=== PATIENT | male | born 1965 | race African-American/Black ===

== ENCOUNTER → 2020-06-18 14:43 | Outpatient (BNVA) | payer OTHER, SELFPAY | PROVIDERS: PCP Internal Medicine; Visit Provider Surgery | DX: L02.11 Cutaneous abscess of neck (principal) | CPT/HCPCS: 10060; 99213 ==

== ENCOUNTER 2020-06-18 17:44 | Outpatient (REF) | payer OTHER, SELFPAY | END 2020-06-18 17:45 | disposition home or self-care (01) | LOC: HO.LNP 17:44 | PROVIDERS: Visit Provider Surgery | DX: L02.91 Cutaneous abscess, unspecified (principal) | CPT/HCPCS: 87071; 87205 ==

== ENCOUNTER 2021-01-14 14:07 | Outpatient (REF) | payer OTHER, SELFPAY | END 2021-01-14 14:08 | disposition home or self-care (01) | LOC: HO.LAB 14:07 | PROVIDERS: PCP Internal Medicine; Visit Provider Surgery | DX: L02.91 Cutaneous abscess, unspecified (principal) | CPT/HCPCS: 10061; 87071; 87205; 99212 ==

== ENCOUNTER → 2021-01-21 14:09 | Outpatient (BNVA) | payer OTHER, SELFPAY | PROVIDERS: PCP Internal Medicine; Visit Provider Surgery | DX: Z48.817 Encounter for surgical aftercare following surgery on the skin and subcutaneous tissue (principal); Z87.2 Personal history of diseases of the skin and subcutaneous tissue | CPT/HCPCS: 99212 ==

== ENCOUNTER 2021-03-05 15:27 | Outpatient (REF) | payer OTHER, SELFPAY | END 2021-03-05 15:28 | disposition home or self-care (01) | LOC: HO.LNP 15:27 | PROVIDERS: PCP Internal Medicine; Referring Provider Internal Medicine; Visit Provider Surgery | DX: L02.91 Cutaneous abscess, unspecified (principal) | CPT/HCPCS: 10061; 87071; 87077; 87186; 87205; 99212 ==

== ENCOUNTER → 2021-03-21 14:10 | Outpatient (BNVA) | payer OTHER, SELFPAY | PROVIDERS: PCP Internal Medicine; Visit Provider Surgery | DX: Z01.818 Encounter for other preprocedural examination (principal); L02.91 Cutaneous abscess, unspecified | CPT/HCPCS: 99212 ==

== ENCOUNTER 2021-04-23 06:54 | Day surgery (SDC) | payer OTHER, SELFPAY ==
[2021-04-16 12:52] VITALS: BMI 37.3
--- NOTE | 2021-04-22 11:48 | P.CONAN_ITS ---
Documented by User: Erika Caputo NP 04/22/21 11:49 HPI - Anesthesia Eval Consult details Narrative: 55yo M for Excision of Large Inclusion Cyst Posterior Neck PMFSH Active Problems Active Problems: All Active Problems (Updated 04/16/21 @ 12:49 by Jennifer Johnston) Abscess (Acute) Past Medical History Medical History Asthma Depression DM II (diabetes mellitus, type II), controlled Elevated cholesterol GERD (gastroesophageal reflux disease) History of hidradenitis suppurativa HTN (hypertension) Obesity Schizophrenia Family History Family History Father No problems noted. Mother Stroke Diabetes HTN (hypertension) Brother No problems noted. Sister No problems noted. Surgical History Surgical History H/O removal of cyst History of colonoscopy History of excision of pilonidal cyst History of incision and drainage Social History Social History Patient Tobacco Use Status: Tobacco use Unknown Advance Directives Information Provided: No Meds Allergies Allergy/AdvReac Type Severity Reaction Status Date / Time bacitracin Allergy Intermediate swelling, Verified 04/16/21 12:37 itching, rash hydrocodone [Vicodin] Allergy Intermediate itchy Verified 04/16/21 12:37 Penicillins [PENICILLINS] Allergy Intermediate itching/facial Verified 04/16/21 12:37 swelling crayfish [CRAYFISH] Allergy Mild ITCH Verified 01/14/21 14:52 morphine [MORPHINE] AdvReac Intermediate ITCHING Verified 04/16/21 12:37 crawfish (other shellfish is Allergy Intermediate facial Uncoded 04/16/21 12:37 f tingling Home Medications Medication Instructions Recorded Confirmed Last Taken Type albuterol (refill) 90 90 mcg INHALATION Q4H PRN 06/05/20 04/16/21 Unknown History mcg/actuation aerosol inhaler amlodipine 10 mg tablet 10 mg PO DAILY 06/05/20 04/16/21 Unknown History aspirin 81 mg tablet,delayed 81 mg PO DAILY 06/05/20 04/16/21 Unknown History release beclomethasone dipropionate 40 1 inh INHALATION Q12H 06/05/20 04/16/21 Unknown History mcg/actuation HFA breath activated aerosol (Qvar RediHaler) buprenorphine 12 mg-naloxone 3 mg 1 film BUCCAL Q24H 06/05/20 04/16/21 Unknown History sublingual film (Suboxone) divalproex 500 mg tablet,delayed 500 mg PO BID 06/05/20 04/16/21 Unknown History release docusate sodium 100 mg capsule 100 mg PO DAILY 06/05/20 04/16/21 Unknown History (Colace) duloxetine 60 mg capsule,delayed 60 mg PO DAILY 06/05/20 04/16/21 Unknown History release gabapentin 300 mg capsule 300 mg PO DAILY 06/05/20 04/16/21 Unknown History hydrochlorothiazide 25 mg tablet 25 mg PO DAILY 06/05/20 04/16/21 Unknown History ibuprofen 600 mg tablet 600 mg PO Q8H PRN 06/05/20 04/16/21 Unknown History melatonin 5 mg capsule 5 mg PO BEDTIME 06/05/20 04/16/21 Unknown History miscellaneous medical supply #1 ea 06/05/20 04/16/21 Unknown History montelukast 10 mg tablet 10 mg PO DAILY 06/05/20 04/16/21 Unknown History naloxone 4 mg/actuation nasal 4 mg INTRANASAL Q2M PRN 06/05/20 04/16/21 Unknown History spray (Narcan) omeprazole 20 mg capsule,delayed 20 mg PO DAILY 06/05/20 04/16/21 Unknown History release rosuvastatin 20 mg tablet 20 mg PO DAILY 06/05/20 04/16/21 Unknown History sennosides 8.6 mg tablet 8.6 mg PO BEDTIME 06/05/20 04/16/21 Unknown History Exam Exam Date and Time: April 22, 2021 1148 Height,Weight and Vital Signs: Height 6 ft 4 in Weight 139 kg Assessment and Plan Assessment Anesthesia Assessment: Chart Reviewed Documented by User: Lakisha Boudreaux MD 04/23/21 08:08 COUNTS INCLUDE 234 BEDS AT THE [facility] Past Medical History Medical History Asthma Depression DM II (diabetes mellitus, type II), controlled Elevated cholesterol GERD (gastroesophageal reflux disease) History of hidradenitis suppurativa HTN (hypertension) Obesity Schizophrenia Family History Family History Father No problems noted. Mother Stroke Diabetes HTN (hypertension) Brother No problems noted. Sister No problems noted. Surgical History Surgical History H/O removal of cyst History of colonoscopy History of excision of pilonidal cyst History of incision and drainage History of Problems with Anesthesia: No ( Hard to wake me up ) Social History Social History Patient Tobacco Use Status: Tobacco use Unknown Advance Directives Information Provided: No Meds Allergies Allergy/AdvReac Type Severity Reaction Status Date / Time bacitracin Allergy Intermediate swelling, Verified 04/16/21 12:37 itching, rash hydrocodone [Vicodin] Allergy Intermediate itchy Verified 04/16/21 12:37 Penicillins [PENICILLINS] Allergy Intermediate itching/facial Verified 04/16/21 12:37 swelling crayfish [CRAYFISH] Allergy Mild ITCH Verified 01/14/21 14:52 morphine [MORPHINE] AdvReac Intermediate ITCHING Verified 04/16/21 12:37 crawfish (other shellfish is Allergy Intermediate facial Uncoded 04/16/21 12:37 f tingling Home Medications Medication Instructions Recorded Confirmed Last Taken Type albuterol (refill) 90 90 mcg INHALATION Q4H PRN 06/05/20 04/16/21 Unknown History mcg/actuation aerosol inhaler amlodipine 10 mg tablet 10 mg PO DAILY 06/05/20 04/16/21 Unknown History aspirin 81 mg tablet,delayed 81 mg PO DAILY 06/05/20 04/16/21 Unknown History release beclomethasone dipropionate 40 1 inh INHALATION Q12H 06/05/20 04/16/21 Unknown History mcg/actuation HFA breath activated aerosol (Qvar RediHaler) buprenorphine 12 mg-naloxone 3 mg 1 film BUCCAL Q24H 06/05/20 04/16/21 Unknown History sublingual film (Suboxone) divalproex 500 mg tablet,delayed 500 mg PO BID 06/05/20 04/16/21 Unknown History release docusate sodium 100 mg capsule 100 mg PO DAILY 06/05/20 04/16/21 Unknown History (Colace) duloxetine 60 mg capsule,delayed 60 mg PO DAILY 06/05/20 04/16/21 Unknown History release gabapentin 300 mg capsule 300 mg PO DAILY 06/05/20 04/16/21 Unknown History hydrochlorothiazide 25 mg tablet 25 mg PO DAILY 06/05/20 04/16/21 Unknown History ibuprofen 600 mg tablet 600 mg PO Q8H PRN 06/05/20 04/16/21 Unknown History melatonin 5 mg capsule 5 mg PO BEDTIME 06/05/20 04/16/21 Unknown History miscellaneous medical supply #1 ea 06/05/20 04/16/21 Unknown History montelukast 10 mg tablet 10 mg PO DAILY 06/05/20 04/16/21 Unknown History naloxone 4 mg/actuation nasal 4 mg INTRANASAL Q2M PRN 06/05/20 04/16/21 Unknown History spray (Narcan) omeprazole 20 mg capsule,delayed 20 mg PO DAILY 06/05/20 04/16/21 Unknown History release rosuvastatin 20 mg tablet 20 mg PO DAILY 06/05/20 04/16/21 Unknown History sennosides 8.6 mg tablet 8.6 mg PO BEDTIME 06/05/20 04/16/21 Unknown History Exam Airway Mallampati Class: III TM Dist: >3cm Neck ROM: Full Loose/Missing/Broken Teeth: No Heart: RRR Lungs: CTA Assessment and Plan Assessment Anesthesia Assessment: Anesthesia Plan Discussed Final Anesthetic Review History of Problems with Anesthesia: No ( Hard to wake me up ) NPO: Yes ASA Class: II Final Preanesthetic Review: Meds/Allgs Chart Reviewed, Consent Obtained/Reviewed and Anes Risks/Benef Reviewed Patient Risk: Low Procedure Risk: Intermediate Anesthetic Plan Anesthetic Plan: GA Disposition: Standard PACU
[2021-04-23] VITALS (11 sets, daily range): BP systolic 119–159; BP diastolic 60–105; PULSE 78–113; RESP 16; TEMP 36.2–37; O2SAT 92–97; BMI 37.7
--- NOTE | 2021-04-23 07:22 | MHC.SHP ---
Pre-Procedural Eval Section A Date of Service: 04/23/21 The patient is an INPATIENT: No Changes since office visit: Yes Patient answered all questions; No Cold of Flu in the past 2 weeks, No New Medical Problems and No Changes in Medication The History & Physical has been completed within 30 days and I have reviewed it.: No Section B Chief Complaint: Abscess Relevant Social History: None Present Medications: see Short Stay Collaborative assessment Medical History: Significant History (DM) History of Previous Operations: No relevant previous surgery Allergies: Allergies Allergy/AdvReac Type Severity Reaction Status Date / Time bacitracin Allergy Intermediate swelling, Verified 04/16/21 12:37 itching, rash hydrocodone [Vicodin] Allergy Intermediate itchy Verified 04/16/21 12:37 Penicillins [PENICILLINS] Allergy Intermediate itching/facial Verified 04/16/21 12:37 swelling crayfish [CRAYFISH] Allergy Mild ITCH Verified 01/14/21 14:52 morphine [MORPHINE] AdvReac Intermediate ITCHING Verified 04/16/21 12:37 crawfish (other shellfish is Allergy Intermediate facial Uncoded 04/16/21 12:37 f tingling Review of Systems Sugical H&P ROS: Negative: Constitution, Cardiovascular, Respiratory, Neurological, Psychiatric, Hem-Onc, Allergic/Immunologic, Gastrointestinal, Genitourinary, Musculoskeletal, Endocrine and Eyes/Ears/Nose/Throat and Yes, Specify: Integumentary (SKin abscess) Exam Surgical H&P Exam: Normal: HEENT, Normal: Heart, Normal: Lungs, Normal: Extremities, Normal: Abdomen, Normal: Skin and Normal: Neurological Plan Diagnosis/Plan: Unchanged I have reviewed the history and physical and performed a pertinent physical examination on my patient. No changes have occurred unless specified.
[2021-04-23] MEDS: Lactated Ringers 1,000 ML 100 ML IVCONT (07:29)
[2021-04-23 07:56] LABS: Glucose, Whole Blood 122 mg/dL (60-115)
--- NOTE | 2021-04-23 10:17 | P.OP_ITS ---
Operative Note Operative Note Date of Service: 04/23/21 Narrative: Preoperative diagnosis: Posterior neck abscess Postoperative diagnosis: Same Procedure: Wide excision posterior neck abscess, debridement of abscess cavity Surgeon: Deven Licea MD Airborne Sensor Specialist: Aniyah Reddy PA-C Anesthesia: General endotracheal Indications for procedure: 55-year-old male patient with a chronically draining abscess of the posterior neck, status post multiple incision and drainage pr ocedures presenting today for wide excision of the multiple posterior neck abscess collections. Patient was found to have a wide area measuring approximately 12 x 3 cm involving the posterior neck with multiple abscess collections Operative findings:. Multiple abscess collections as noted above measuring 12 x 3 cm Specimen: Wound culture, posterior neck abscess Estimated blood loss: 20 mL Complications: None Procedure details: Patient was brought to the OR and placed in a supine position. After administering general anesthesia he was placed in a prone position. The patient's posterior neck was prepped with Betadine and draped in a sterile fashion. A surgical time-out was called the consent confirmed. Patient received preoperative antibiotics and Venodyne boots were in place. Local anesthesia consisting of 0.25% Sensorcaine with epinephrine was then infiltrated in the posterior neck. An elliptical incision was made with a scalpel around the previously infected abscess collections. Incision was carried down to through subcutaneous tissue and around the chronically inflamed tissue. Several abscess collections were identified and drained. A culture of the purulence was obtained. A 2nd collection more to the left of midline was also drained of a large purulence collection. This was incised with a scalpel and the abscess cavity debrided using a curette. Further observation revealed several deeper collections with purulence discharge in the intervening skin. Incision was continued between the 2 incisions and 2 additional collections identified within the subcutaneous tissue extending down to the muscle fascia. This abscess cavity was further debrided using electrocautery sharp dissection. Total of 12 x 3 cm debridement of the skin subcutaneous tissue was performed. Because of the presence of pus within this cavity no attempt was made at closing the wound. Wounds were packed with half-inch iodoform packing and covered with fluff gauze followed by ABD pads. The patient tolerated the procedure well. Sponge, instrument, and needle counts reported as correct. The patient was transferred to PACU in stable condition.
[2021-04-23] MEDS: oxyCODONE HCl Immed Release 5 MG TABLET 10 MG PO (12:04)
--- NOTE | 2021-04-23 13:19 | PC.NURSE ---
Pt instructed to keep dressing clean and dry, no heavy lifting. F/U appt with Dr Wilkerson tomorrow. No shower until advised by MD. Electronic RX to [facility]
== END 2021-04-23 13:20 | disposition home or self-care (01) ==
LOC: HO.SSS 06:55 → HO.SSSA 11:19
PROVIDERS: PCP Internal Medicine; Visit Provider Surgery
PROC: (CPT 10061; principal; 2021-04-23 08:40)
DX: L02.11 Cutaneous abscess of neck (principal); Z88.0 Allergy status to penicillin; Z79.82 Long term (current) use of aspirin; Z79.899 Other long term (current) drug therapy; Z88.8 Allergy status to other drugs, medicaments and biological substances
CPT/HCPCS: 10061; 82947; 87071; 87205; 88304; J0330; J1100; J2250; J2370; J2405; J3010; J3370

== ENCOUNTER → 2021-04-24 10:46 | Outpatient (BNVA) | payer OTHER, SELFPAY | PROVIDERS: PCP Internal Medicine; Visit Provider Surgery | DX: Z48.817 Encounter for surgical aftercare following surgery on the skin and subcutaneous tissue (principal); Z87.2 Personal history of diseases of the skin and subcutaneous tissue | CPT/HCPCS: 99212 ==

== ENCOUNTER → 2021-04-29 14:00 | Outpatient (BNVA) | payer OTHER, SELFPAY | PROVIDERS: PCP Internal Medicine; Referring Provider Internal Medicine; Visit Provider Surgery | DX: Z48.817 Encounter for surgical aftercare following surgery on the skin and subcutaneous tissue (principal) | CPT/HCPCS: 99212 ==

== ENCOUNTER → 2021-05-02 11:41 | Outpatient (BNVA) | payer OTHER, SELFPAY | PROVIDERS: PCP Internal Medicine; Visit Provider Surgery | DX: Z48.817 Encounter for surgical aftercare following surgery on the skin and subcutaneous tissue (principal); Z87.2 Personal history of diseases of the skin and subcutaneous tissue | CPT/HCPCS: 99212 ==

== ENCOUNTER → 2021-05-06 16:00 | Outpatient (BNVA) | payer OTHER, SELFPAY | PROVIDERS: PCP Internal Medicine; Visit Provider Surgery | DX: L02.11 Cutaneous abscess of neck (principal); L73.2 Hidradenitis suppurativa; E11.9 Type 2 diabetes mellitus without complications; E78.00 Pure hypercholesterolemia, unspecified; I10 Essential (primary) hypertension; Z88.8 Allergy status to other drugs, medicaments and biological substances; Z88.5 Allergy status to narcotic agent; Z88.0 Allergy status to penicillin; Z91.013 Allergy to seafood | CPT/HCPCS: 99212 ==

== ENCOUNTER → 2021-05-20 15:20 | Outpatient (BNVA) | payer OTHER, SELFPAY | PROVIDERS: PCP Internal Medicine; Visit Provider Surgery | DX: L02.91 Cutaneous abscess, unspecified (principal) | CPT/HCPCS: 99212 ==

== ENCOUNTER → 2021-06-24 16:24 | Outpatient (BNVA) | payer OTHER, SELFPAY | PROVIDERS: PCP Internal Medicine; Visit Provider Surgery | DX: Z48.817 Encounter for surgical aftercare following surgery on the skin and subcutaneous tissue (principal); Z87.2 Personal history of diseases of the skin and subcutaneous tissue | CPT/HCPCS: 99212 ==

== ENCOUNTER → 2021-07-29 15:09 | Outpatient (BNVA) | payer OTHER, SELFPAY | PROVIDERS: PCP Internal Medicine; Visit Provider Surgery | DX: L02.91 Cutaneous abscess, unspecified (principal) | CPT/HCPCS: 99212 ==

== ENCOUNTER → 2021-08-05 16:03 | Outpatient (BNVA) | payer OTHER, SELFPAY | PROVIDERS: PCP Internal Medicine; Visit Provider Surgery | DX: L02.91 Cutaneous abscess, unspecified (principal); R59.0 Localized enlarged lymph nodes; E11.9 Type 2 diabetes mellitus without complications; I10 Essential (primary) hypertension; E78.00 Pure hypercholesterolemia, unspecified; E66.9 Obesity, unspecified; Z68.39 Body mass index [BMI] 39.0-39.9, adult; Z83.3 Family history of diabetes mellitus; Z82.49 Family history of ischemic heart disease and other diseases of the circulatory system; Z88.6 Allergy status to analgesic agent; Z88.1 Allergy status to other antibiotic agents; Z88.0 Allergy status to penicillin; Z91.013 Allergy to seafood; Z79.82 Long term (current) use of aspirin; Z79.899 Other long term (current) drug therapy | CPT/HCPCS: 99212 ==

== ENCOUNTER 2024-02-22 13:50 | Outpatient (AMB) | payer OTHER, SELFPAY ==
--- NOTE | 2024-02-22 13:52 | A.OFFVIS_ITS ---
Vital Signs 3 02/22/24 14:08 Height 6 ft 4.5 in Weight 313 lb BMI 37.6 Blood Pressure Location Lt brachial Position Sitting Pulse 75 Intake Visit Reasons: recurrent lipoma of the neck Intake Note: Patient is seen in office for recurrent lipoma of the neck. Pt c/o: recurrent abscess of the neck is draining, and has a couple more new ones, left arm for 6 months, right chest for 4 months, discharge comes and goes, very painful L.OV:08/05/21 Director Consumer Affairs Required: No Accompanied by: Self / Same As Patient Allergies bacitracin Allergy (Intermediate, Verified 02/22/24 14:01) swelling, itching, rash hydrocodone [Vicodin] Allergy (Intermediate, Verified 02/22/24 14:01) itchy Penicillins [PENICILLINS] Allergy (Intermediate, Verified 02/22/24 14:01) itching/facial swelling crayfish [CRAYFISH] Allergy (Mild, Verified 02/22/24 14:01) ITCH morphine [MORPHINE] Adverse Reaction (Intermediate, Verified 02/22/24 14:01) ITCHING crawfish (other shellfish is f Allergy (Intermediate, Uncoded 02/22/24 14:01) facial tingling Medication List - Last Reconciled 02/22/24 by Deven Licea MD [3 inch cloth tape As directed] [4x4 gauze As directed] albuterol (refill) 90 mcg/actuation 90 mcg inhalation Q4H PRN amlodipine 10 mg PO DAILY aspirin 81 mg PO DAILY chlorhexidine gluconate 4% (Hibiclens) 1 appl topical .QOD divalproex 500 mg PO BID doxycycline hyclate 100 mg PO BID duloxetine 60 mg PO DAILY gabapentin 600 mg PO TID hydrochlorothiazide 25 mg PO DAILY melatonin 5 mg PO BEDTIME montelukast 10 mg PO DAILY naloxone 4 mg/actuation (Narcan) 4 mg intranasal Q2M PRN omeprazole 20 mg PO DAILY oxycodone 10 mg PO Q8H PRN rosuvastatin 20 mg PO DAILY HPI Comments Details: Mr. Colon returns for follow-up evaluation of multiple skin infections. This includes recurrent infection involving the posterior neck, chest wall, and left axilla. He reports severe pain with constant drainage. He is unable to afford dressing changes so as using a washcloth over the wounds. He had some drainage from the axilla recently. He also notes several palpable masses in the left neck which he feels are probably enlarged lymph nodes. He denies any fever or chills. He has currently not on antibiotics and not using any antibacterial soap. [facility] Medical History Elevated cholesterol Schizophrenia DM II (diabetes mellitus, type II), controlled Obesity GERD (gastroesophageal reflux disease) Depression HTN (hypertension) Asthma History of hidradenitis suppurativa Surgical History History of incision and drainage History of colonoscopy H/O removal of cyst History of excision of pilonidal cyst Family History Father No problems noted. Mother Stroke Diabetes HTN (hypertension) Brother No problems noted. Sister No problems noted. Social History Patient Tobacco Use Status: Tobacco use Unknown Review of Systems Const All systems reviewed & are unremarkable except as noted in HPI and below Physical Exam Vital Signs: Last Vital Signs Pulse 75 02/22/24 14:08 BMI result Body Mass Index 37.6 Const General: no acute distress Nutritional Appearance: well nourished Orientation/consciousness: patient oriented x3 Limitations: no limitations Neck Other: Posterior neck with a large open wound just below the hairline Neck images: 2 1. Open wound posterior neck Chest Chest/axillae images: 2 1. Open wound left axilla GI Inspection: Yes normal to inspection Palpation (GI): Soft to palpation and nontender Skin Other: As noted above Neuro General: patient oriented x3 Assessment & Plan Assessment & Plan (1) History of hidradenitis suppurativa: Comment: 2016-left axilla with wound vac & subsequent skin graft Code(s): Z87.2 - Personal history of diseases of the skin and subcutaneous tissue Category: Medical (2) Abscess: Code(s): L02.91 - Cutaneous abscess, unspecified Category: Medical Plan Unfortunate 58 year old with a long history of hidradenitis and chronic infections in the posterior neck. He previously underwent a wide excision of the multiple cysts of the posterior neck but this has subsequently returned once again. I recommended a combined approach using oral antibiotics (doxycycline 100 mg p.o. b.i.d.) as well as topical surgical scrub (Hibiclens) to help lower the bacterial counts on the skin. He will return in 1 week for wound examination and reassessment. He expressed understanding and agrees with the plan. Medications: New 2 oxycodone Partial Fill upon patient request. 10 mg PO Q8H PRN 30 tabs 0RF pain (scale score 7-10) L02.91 - Cutaneous abscess, unspecified, Z87.2 - Personal history of diseases of the skin and subcutaneous tissue chlorhexidine gluconate 4% (Ronaldiclens) Lather in shower, leave on for 1 minute prior to washing off. Wash all affected areas. 1 appl topical .QOD 473 mL 3RF Refilled 2 doxycycline hyclate 100 mg PO BID 60 caps 1RF L02.91 - Cutaneous abscess, unspecified Coding Level of Care Code Est Pt Level 3 (49435) Diagnoses History of hidradenitis suppurativa Z87.2 Abscess L02.91
[2024-02-22 14:08] VITALS: PULSE 75; BMI 37.6
== END 2024-02-22 14:28 | disposition home or self-care (01) ==
PROVIDERS: PCP Internal Medicine; Visit Provider Surgery
DX: L02.91 Cutaneous abscess, unspecified (principal); Z87.2 Personal history of diseases of the skin and subcutaneous tissue
CPT/HCPCS: 99214

== ENCOUNTER → 2024-02-22 13:50 | Outpatient (BNVA) | payer OTHER, SELFPAY | PROVIDERS: PCP Internal Medicine; Visit Provider Surgery | DX: L02.11 Cutaneous abscess of neck (principal); Z87.2 Personal history of diseases of the skin and subcutaneous tissue | CPT/HCPCS: 99212 ==

== ENCOUNTER 2024-09-18 11:36 | Outpatient (AMB) | payer OTHER, SELFPAY ==
--- NOTE | 2024-09-18 11:36 | A.OFFVIS_ITS ---
Vital Signs 09/18/24 11:42 Height 6 ft 4.5 in Weight 335 lb BMI 40.2 BP 177/70 H Blood Pressure Location Rt radial Position Sitting Pulse 97 Intake Visit Reasons: open cyst back of neck (pt of Dr Licea) Intake Note: Patient of Dr. Licea's here c/o: open cyst back of posterior neck. Patient c/o: severe pain. Reports hx of 3previous cyst removed on same area. HX of HS. 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 Accompanied by: Self / Same As Patient Allergies bacitracin Allergy (Intermediate, Verified 09/18/24 11:41) swelling, itching, rash hydrocodone [Vicodin] Allergy (Intermediate, Verified 09/18/24 11:41) itchy Penicillins [PENICILLINS] Allergy (Intermediate, Verified 09/18/24 11:41) itching/facial swelling crayfish [CRAYFISH] Allergy (Mild, Verified 09/18/24 11:41) ITCH morphine [MORPHINE] Adverse Reaction (Intermediate, Verified 09/18/24 11:41) ITCHING crawfish (other shellfish is f Allergy (Intermediate, Uncoded 09/18/24 11:41) facial tingling Medication List - Last Reconciled 09/18/24 by Andi Nunez MD [3 inch cloth tape As directed] [4x4 gauze As directed] albuterol (refill) 90 mcg/actuation 90 mcg inhalation Q4H PRN amlodipine 10 mg PO DAILY aspirin 81 mg PO DAILY chlorhexidine gluconate 4% (Hibiclens) 1 appl topical .QOD divalproex 500 mg PO BID doxycycline hyclate 100 mg PO BID duloxetine 60 mg PO DAILY gabapentin 600 mg PO TID hydrochlorothiazide 25 mg PO DAILY melatonin 5 mg PO BEDTIME montelukast 10 mg PO DAILY naloxone 4 mg/actuation (Narcan) 4 mg intranasal Q2M PRN omeprazole 20 mg PO DAILY oxycodone 10 mg PO Q8H PRN rosuvastatin 20 mg PO DAILY HPI Comments Details: Patient was a long standing history of hidradenitis suppurativa involving variety of areas his skin. He presents here with recurrent symptoms. These involve posterior neck, right shoulder, right neck, and left axilla. These flare ups are fairly common for him. He would like to have him evaluated today. Dr. Licea was in the operating room so I am seeing him at this time. Chart was reviewed and patient evaluated [facility] Medical History Elevated cholesterol Schizophrenia DM II (diabetes mellitus, type II), controlled Obesity GERD (gastroesophageal reflux disease) Depression HTN (hypertension) Asthma History of hidradenitis suppurativa Surgical History History of incision and drainage History of colonoscopy H/O removal of cyst History of excision of pilonidal cyst Family History Father No problems noted. Mother Stroke Diabetes HTN (hypertension) Brother No problems noted. Sister No problems noted. Social History Patient Tobacco Use Status: Tobacco use Unknown Physical Exam Vital Signs: Last Vital Signs Pulse 97 09/18/24 11:42 BP 177/70 H 09/18/24 11:42 BMI result Body Mass Index 40.2 Skin Other: Chronic lymphadenitis suppurative findings involving the above-mentioned places, posterior neck, right shoulder, right neck, left axilla. At this time, there is irritation and erythema and some drainage but no abscess per se in any of the sites. These areas demonstrate significant cicatrization and scarring consistent with multiple prior episodes of this hidradenitis suppurativa. Assessment & Plan Assessment & Plan (1) Suppurative hidradenitis: Code(s): L73.2 - Hidradenitis suppurativa Category: Surgical Plan Patient was been given local instructions including warm compresses, avoiding strenuous activities, he will be given antibiotics analgesics, and arrangements were made for him to follow up with Dr. Licea later this week. All questions answered. Medications: New oxycodone Partial Fill upon patient request. 10 mg PO BID PRN 20 tabs 0RF pain sulfamethoxazole-trimethoprim 400-80 mg (Bactrim) 1 tab PO BID 20 tabs 0RF Coding Level of Care Code New Pt Level 4 (06662) Diagnoses Suppurative hidradenitis L73.2
[2024-09-18 11:42] VITALS: BP 177/70; PULSE 97; BMI 40.2
== END 2024-09-18 12:31 | disposition home or self-care (01) ==
LOC: HO.HGS 11:36
PROVIDERS: PCP Internal Medicine; Visit Provider Surgery
DX: L73.2 Hidradenitis suppurativa (principal)
CPT/HCPCS: 99204

== ENCOUNTER → 2024-09-18 11:36 | Outpatient (BNVA) | payer OTHER, SELFPAY | PROVIDERS: PCP Internal Medicine; Visit Provider Surgery | DX: L73.2 Hidradenitis suppurativa (principal) | CPT/HCPCS: 99202 ==

== ENCOUNTER 2025-01-18 10:42 | Outpatient (AMB) | payer OTHER, SELFPAY ==
--- NOTE | 2025-01-18 10:43 | MHC.OFFVIS ---
Vital Signs 01/18/25 10:51 Height 6 ft 4.5 in Weight 344 lb BMI 41.3 BP 134/61 Blood Pressure Location Rt brachial Position Sitting Pulse 63 Intake Visit Reasons: hidradenitis Intake Note: Patient being seen as urgent appointment for flare of cyst on posterior neck. Feels like cyst is infected. States I need abx. Patient c/o: painful to touch. Oozing with pressure. 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 Accompanied by: Self / Same As Patient Allergies bacitracin Allergy (Intermediate, Verified 01/18/25 10:50) swelling, itching, rash hydrocodone [Vicodin] Allergy (Intermediate, Verified 01/18/25 10:50) itchy Penicillins [PENICILLINS] Allergy (Intermediate, Verified 01/18/25 10:50) itching/facial swelling crayfish [CRAYFISH] Allergy (Mild, Verified 01/18/25 10:50) ITCH morphine [MORPHINE] Adverse Reaction (Intermediate, Verified 01/18/25 10:50) ITCHING crawfish (other shellfish is f Allergy (Intermediate, Uncoded 01/18/25 10:50) facial tingling HPI HPI hidradenitis: Details: 59-year-old male here for follow-up for hidradenitis. He has had a long history of hidradenitis suppurativa. He had a previous excision of this on the posterior neck. He has had flare-ups different areas of his body including the axilla, the chest wall and the of the torso. He says that he has had this area of drainage and induration on the posterior neck for several years as well. This has been previously excised about [address] Licea but this has recurred. He continues to have some drainage although on some days he says that this seemed to be more. [facility] Medical History Elevated cholesterol Schizophrenia DM II (diabetes mellitus, type II), controlled Obesity GERD (gastroesophageal reflux disease) Depression HTN (hypertension) Asthma History of hidradenitis suppurativa Surgical History History of incision and drainage History of colonoscopy H/O removal of cyst History of excision of pilonidal cyst Family History Father No problems noted. Mother Stroke Diabetes HTN (hypertension) Brother No problems noted. Sister No problems noted. Social History Patient Tobacco Use Status: Tobacco use Unknown Review of Systems Const Denies chills and Denies fever(s) Card Denies chest pain, Denies dyspnea and Denies dyspnea on exertion Resp Denies cough, Denies dyspnea and Denies dyspnea on exertion GI Denies hematochezia and Denies change in bowel habits Denies hematuria and Denies difficulty urinating Musc Denies back pain and Denies limited range of motion Neuro Denies focal weakness and Denies convulsions Psych Denies depression and Denies mood swings Physical Exam Const Other: Morbidly obese General: comfortable and no acute distress Orientation/consciousness: patient oriented x3 Neck Neck: Yes no lymphadenopathy Resp Auscultation: clear to auscultation bilaterally Cardio Rhythm: regular rhythm GI Palpation (GI): Soft to palpation, nontender and no guarding Skin Other: Posterior neck with a linear area of induration, multiple sinuses with some drainage, with an area about 12 cm in widest dimension, but narrow corresponding to the previous excision site, no fluctuance Neuro General: patient oriented x3 Assessment & Plan Assessment & Plan (1) History of hidradenitis suppurativa: Comment: 2016-left axilla with wound vac & subsequent skin graft Code(s): Z87.2 - Personal history of diseases of the skin and subcutaneous tissue Category: Medical Plan: He has hidradenitis suppurativa with area of active disease in the posterior neck in the torso. This did not appear to be fluctuant at this time. He does have multiple sinus says with scanty drainage along with induration I will start him on some doxycycline. I told him that he may benefit from systemic therapy with a biologic, and I have pertinent for him to see Dr. Mann of [facility] and I provided him the name. He will follow up in the office again down the line he says. Plan I explained the technique of excision. I reviewed the risks including but not limited to bleeding, infections, poor healing, recurrence, as well as the benefits and alternatives. Coding Level of Care Code Est Pt Level 3 (87099) Diagnoses History of hidradenitis suppurativa Z87.2
[2025-01-18 10:51] VITALS: BP 134/61; PULSE 63; BMI 41.3
== END 2025-01-18 10:58 | disposition home or self-care (01) ==
PROVIDERS: PCP Internal Medicine; Visit Provider Surgery
DX: Z87.2 Personal history of diseases of the skin and subcutaneous tissue (principal)
CPT/HCPCS: 99213

== ENCOUNTER → 2025-01-18 10:42 | Outpatient (BNVA) | payer OTHER, SELFPAY | PROVIDERS: PCP Internal Medicine; Visit Provider Surgery | DX: L73.2 Hidradenitis suppurativa (principal); Z87.2 Personal history of diseases of the skin and subcutaneous tissue | CPT/HCPCS: 99212 ==